=== PATIENT | male | born 1970 | race Hispanic/Latino ===

== ENCOUNTER 2018-04-22 15:11 | Emergency (ER) | payer SELFPAY ==
[2018-04-22] MEDS ORDERED: Ketorolac Tromethamine 30 MG/ML VIAL ONE (15:56)
--- NOTE | 2018-04-22 16:23 | RAD ---
FOUR VIEWS LEFT ELBOW: History: Swelling for one week. FINDINGS: AP, lateral, and both oblique views left elbow obtained. There is extensive soft tissue swelling posterior to the left elbow surrounding the olecranon. This m ay represent a possible area of infection. No osseous lesions or fractures seen. IMPRESSION: Extensive soft tissue swelling. Cellulitis, or abscess in this area in this area cannot be excluded. No evidence of acute fracture or bony lesions seen. POS: [facility]
== END 2018-04-22 16:55 | disposition home or self-care (01) ==
LOC: ERS 15:11
DX: M70.22 Olecranon bursitis, left elbow (principal); F32.9 Major depressive disorder, single episode, unspecified; F17.210 Nicotine dependence, cigarettes, uncomplicated; Z71.6 Tobacco abuse counseling
CPT/HCPCS: 96372; 99406; J1885

== ENCOUNTER 2018-06-25 22:11 | Emergency (ER) | payer SELFPAY ==
--- NOTE | 2018-06-25 22:28 | RAD ---
THREE VIEWS OF THE LEFT SHOULDER: 06/25/18 COMPARISON: None. HISTORY: Trauma to left shoulder with left shoulder pain. FINDINGS: Three views of the left shoulder shows no evidence of acute fracture or dislocation. No degenerative changes are seen. No soft tissue swelling is present. IMPRESSION: No evidence of acute osseous abnormality. POS: [facility]
== END 2018-06-25 23:03 | disposition home or self-care (01) ==
LOC: ERS 22:11
DX: S46.912A Strain of unspecified muscle, fascia and tendon at shoulder and upper arm level, left arm, initial encounter (principal); F32.9 Major depressive disorder, single episode, unspecified; F17.210 Nicotine dependence, cigarettes, uncomplicated; Z79.899 Other long term (current) drug therapy; V89.2XXA Person injured in unspecified motor-vehicle accident, traffic, initial encounter
CPT/HCPCS: G0390

== ENCOUNTER 2021-02-25 04:03 | Emergency (ER) | payer SELFPAY | END 2021-02-25 04:30 | LOC: ERS 04:03 | DX: Z02.89 Encounter for other administrative examinations (principal); I10 Essential (primary) hypertension; F17.210 Nicotine dependence, cigarettes, uncomplicated | CPT/HCPCS: 99283 ==

== ENCOUNTER 2022-06-02 21:29 | Observation (INO) | payer SELFPAY ==
[2022-06-02 22:02] LABS: #Basophils 0.1 thou/uL (0.0-0.2); #Eosinphils 0.1 thou/uL (0.0-0.7); #Lymphocytes 2.5 thou/uL (1.20-3.40); #Monocytes 0.7 thou/uL (0.11-0.59); #Neutrophils 4.4 thou/uL (1.40-6.50); %Basophils 0.9 % (0.0-1.0); %Eosinophils 1.8 % (0.0-10.0); %Lymphocytes 32.7 % (21.0-51.0); %Monocytes 8.4 % (0.0-10.0); %Neutrophils 56.2 % (42.0-75.0); Hemoglobin 12.6 g/dL (14.0-18.0); Mean Corpuscular HGB CONC 34.9 g/dL (32.0-36.0); Mean Corpuscular Hemoglobin 30.6 pg (27.0-31.0); Mean Corpuscular Volume 87.7 fL (78.0-98.0); Mean Platelet Volume 8.8 fL (7.4-10.4); Platelet Count 170 thou/uL (130-400); RBC Distribution Width 12.3 % (11.5-14.5); Red Blood Cell (RBC) Count 4.12 mill/uL (4.70-6.10); White Blood Cell (WBC) Count 7.8 thou/uL (4.8-10.8)
[2022-06-02 22:22] LABS: ALT (SGPT) 12 U/L (8-55); AST (SGOT) 15 U/L (5-34); Albumin 3.6 g/dL (3.5-5.0); Alkaline Phosphatase 100 U/L (40-110); Anion Gap 14 mmol/L (10-20); BUN (Urea Nitrogen) 17 mg/dL (8.9-20.6); Bilirubin, Total 0.5 mg/dL (0.2-1.2); Calc. Creatinine Clearance 0 mL/min (70-130); Calcium 8.7 mg/dL (7.8-10.44); Carbon Dioxide 25 mmol/L (22-29); Chloride 107 mmol/L (98-107); Estimated GFR 59; Globulin 2.7 g/dL (2.4-3.5); Glucose 111 mg/dL (70-105); Potassium 3.7 mmol/L (3.5-5.1); Protein, Total 6.3 g/dL (6.0-8.3); Sodium 142 mmol/L (136-145)
[2022-06-02 22:44] LABS: CKMB 1.7 ng/mL (0-6.6)
[2022-06-02] MEDS ORDERED: Nitrazine Tape 1 ROLL ONE (22:55)
[2022-06-02] MEDS ORDERED: Nitroglycerin 2% Ointment 1 INCH/1 GM Packet ONE (22:55)
[2022-06-02] MEDS ORDERED: Lisinopril 10 MG TAB ONE (22:55)
[2022-06-02] MEDS ORDERED: Aspirin Chewable 81 MG TAB ONE (22:55)
[2022-06-02] MEDS ORDERED: Chlorthalidone 25 MG TAB PO SCH (23:45)
[2022-06-03] MEDS ORDERED: Ondansetron PF 4 MG/2 ML Vial IVP PRN (00:11)
[2022-06-03] MEDS ORDERED: Acetaminophen 325 MG TAB PO PRN (00:11)
[2022-06-03] MEDS ORDERED: Nitroglycerin 0.4 MG TAB (25 Tab Bottle) SL PRN (00:12)
[2022-06-03 01:23] LABS: Troponin I 0.026 ng/mL (< 0.028)
[2022-06-03] MEDS: hydrALAZINE 20 MG/ML VIAL SLOW IVP PRN ×2 (01:23→07:42)
[2022-06-03 05:09] LABS: #Eosinphils 0.2 thou/uL (0.0-0.7); #Lymphocytes 2.5 thou/uL (1.20-3.40); #Monocytes 0.6 thou/uL (0.11-0.59); #Neutrophils 3.6 thou/uL (1.40-6.50); %Basophils 0.6 % (0.0-1.0); %Eosinophils 2.7 % (0.0-10.0); %Lymphocytes 35.3 % (21.0-51.0); %Monocytes 9.3 % (0.0-10.0); %Neutrophils 52.2 % (42.0-75.0); Hemoglobin 12.4 g/dL (14.0-18.0); Mean Corpuscular HGB CONC 33.9 g/dL (32.0-36.0); Mean Corpuscular Hemoglobin 30.1 pg (27.0-31.0); Mean Corpuscular Volume 88.9 fL (78.0-98.0); Mean Platelet Volume 8.9 fL (7.4-10.4); Platelet Count 163 thou/uL (130-400); RBC Distribution Width 12.4 % (11.5-14.5); Red Blood Cell (RBC) Count 4.13 mill/uL (4.70-6.10)
[2022-06-03 05:29] LABS: Anion Gap 13 mmol/L (10-20); BUN (Urea Nitrogen) 17 mg/dL (8.9-20.6); Calc. Creatinine Clearance 86 mL/min (70-130); Calcium 8.7 mg/dL (7.8-10.44); Carbon Dioxide 23 mmol/L (22-29); Chloride 108 mmol/L (98-107); Estimated GFR 65; Glucose 99 mg/dL (70-105); Potassium 3.6 mmol/L (3.5-5.1); Sodium 140 mmol/L (136-145)
[2022-06-03 05:35] LABS: Troponin I 0.018 ng/mL (< 0.028)
[2022-06-03] MEDS ORDERED: Regadenoson 0.4 MG/5 ML SYRINGE ONE (08:47)
[2022-06-03] MEDS ORDERED: NIFEdipine XL 30 MG TAB PO SCH (09:00)
[2022-06-03] MEDS ORDERED: Heparin 5,000 UNITS/ML VIAL SC SCH (09:00)
[2022-06-03] MEDS ORDERED: Chlorthalidone 25 MG TAB PO SCH (09:00)
[2022-06-03 09:01] LABS: Cardiac Risk 4.4 (Less than 4.5)
[2022-06-03 12:40] VITALS: BP 140/87; TEMP 97.8
[2022-06-03] MEDS ORDERED: Lisinopril 20 MG TAB PO SCH (21:00)
== END 2022-06-03 15:05 | disposition home or self-care (01) ==
LOC: ERS 21:29 → 2SW 06-03 00:03
PROVIDERS: ADMIT Family Medicine; ATTEND Family Medicine
DX: I16.0 Hypertensive urgency (principal); R07.89 Other chest pain; R42 Dizziness and giddiness; I10 Essential (primary) hypertension; R00.1 Bradycardia, unspecified; N17.9 Acute kidney failure, unspecified; Z87.891 Personal history of nicotine dependence; Z20.822 Contact with and (suspected) exposure to COVID-19
CPT/HCPCS: 36415; 70450; 71045; 78452; 80048; 80053; 80061; 82553; 83735; 84443; 84484; 85025; 93005; 93017; 96374; 96376; A9500; G0378; J0360; J2785; U0003; U0005

== ENCOUNTER 2022-07-14 21:42 | Emergency (ER) | payer SELFPAY ==
[2022-07-15] MEDS ORDERED: HYDROcodone/Acetaminophen 10/325 mg Tablet ONE (00:16)
== END 2022-07-15 00:36 | disposition home or self-care (01) ==
LOC: ERS 21:42
DX: M17.12 Unilateral primary osteoarthritis, left knee (principal); I10 Essential (primary) hypertension; F17.210 Nicotine dependence, cigarettes, uncomplicated

== ENCOUNTER 2022-10-01 18:27 | Inpatient (IN) | payer SELFPAY ==
[2022-10-01 18:54] LABS: #Basophils 0.1 thou/uL (0.0-0.2); #Eosinphils 0.1 thou/uL (0.0-0.7); #Lymphocytes 2.2 thou/uL (1.20-3.40); #Monocytes 0.5 thou/uL (0.11-0.59); #Neutrophils 4.4 thou/uL (1.40-6.50); %Basophils 0.7 % (0.0-1.0); %Eosinophils 1.5 % (0.0-10.0); %Lymphocytes 30.6 % (21.0-51.0); %Monocytes 6.8 % (0.0-10.0); %Neutrophils 60.4 % (42.0-75.0); Hemoglobin 12.8 g/dL (14.0-18.0); Mean Corpuscular HGB CONC 34.4 g/dL (32.0-36.0); Mean Corpuscular Hemoglobin 30.6 pg (27.0-31.0); Mean Corpuscular Volume 88.9 fl (78.0-98.0); Mean Platelet Volume 8.9 fL (7.4-10.4); Platelet Count 191 10x3/uL (130-400); RBC Distribution Width 12.4 % (11.5-14.5); Red Blood Cell (RBC) Count 4.17 mill/uL (4.70-6.10); White Blood Cell (WBC) Count 7.2 10x3/uL (4.8-10.8)
[2022-10-01] MEDS ORDERED: Nitroglycerin 2% Ointment 1 INCH/1 GM Packet ONE (19:04)
[2022-10-01] MEDS ORDERED: hydrALAZINE 20 MG/ML VIAL ONE (19:05)
[2022-10-01 19:14] LABS: ALT (SGPT) 17 U/L (8-55); AST (SGOT) 16 U/L (5-34); Albumin 3.9 g/dL (3.5-5.0); Alkaline Phosphatase 100 U/L (40-110); Anion Gap 14 mmol/L (10-20); BUN (Urea Nitrogen) 18 mg/dL (8.9-20.6); Bilirubin, Total 0.4 mg/dL (0.2-1.2); Calc. Creatinine Clearance 0 mL/min (70-130); Carbon Dioxide 24 mmol/L (22-29); Chloride 107 mmol/L (98-107); Estimated GFR 58; Glucose 162 mg/dL (70-105); Lipase 27 U/L (8-78); Potassium 3.8 mmol/L (3.5-5.1); Protein, Total 6.9 g/dL (6.0-8.3); Sodium 141 mmol/L (136-145)
[2022-10-01] MEDS ORDERED: hydrALAZINE 20 MG/ML VIAL SLOW IVP PRN (20:28)
[2022-10-01] MEDS ORDERED: NIFEdipine XL 30 MG TAB PO SCH (20:41)
[2022-10-01 21:38] LABS: Troponin I 0.013 ng/mL (< 0.028)
[2022-10-02] MEDS ORDERED: hydrALAZINE 25 MG TAB ONE (00:08)
[2022-10-02] MEDS ORDERED: NIFEdipine XL 30 MG TAB PO SCH (00:15)
[2022-10-02] MEDS: hydrALAZINE 25 MG TAB PO SCH ×3 (00:16→14:08)
[2022-10-02 02:37] LABS: Troponin I 0.063 ng/mL (< 0.028)
[2022-10-02 07:08] LABS: Anion Gap 14 mmol/L (10-20); BUN (Urea Nitrogen) 24 mg/dL (8.9-20.6); Calc. Creatinine Clearance 86 mL/min (70-130); Carbon Dioxide 22 mmol/L (22-29); Chloride 109 mmol/L (98-107); Estimated GFR 62; Glucose 107 mg/dL (70-105); Potassium 3.8 mmol/L (3.5-5.1); Sodium 141 mmol/L (136-145)
[2022-10-02 13:31] VITALS: BMI 32.1
[2022-10-02] MEDS: NIFEdipine XL 30 MG TAB PO SCH (14:08)
[2022-10-02] MEDS ORDERED: Labetalol HCl 100 MG/20 ML VIAL SLOW IVP PRN (16:31)
[2022-10-02] MEDS ORDERED: Lisinopril 20 MG TAB PO SCH ×2 (21:00)
[2022-10-03] MEDS ORDERED: Chlorthalidone 25 MG TAB PO SCH (09:00)
[2022-10-03] MEDS: NIFEdipine XL 30 MG TAB PO SCH (09:51)
[2022-10-03] MEDS ORDERED: Lisinopril 20 MG TAB PO SCH (16:00)
[2022-10-03 16:15] VITALS: BP 174/114; TEMP 97.8
[2022-10-04] MEDS ORDERED: Lisinopril/Hydrochlorothiazide 20 mg/12.5 mg Tablet PO SCH (09:00)
== END 2022-10-03 16:55 | disposition left against medical advice (07) | DRG 305 ==
LOC: ERS 18:27 → ERHOLD 20:56 → 2SW 10-02 13:16 → OBSVTOIN 10-02 17:51
PROVIDERS: ADMIT Internal Medicine; ATTEND Internal Medicine
DX: I16.0 Hypertensive urgency (principal); F32.A Depression, unspecified; N18.30 Chronic kidney disease, stage 3 unspecified; I12.9 Hypertensive chronic kidney disease with stage 1 through stage 4 chronic kidney disease, or unspecified chronic kidney disease; F41.9 Anxiety disorder, unspecified; D63.1 Anemia in chronic kidney disease; E63.9 Nutritional deficiency, unspecified; E66.9 Obesity, unspecified; Z20.822 Contact with and (suspected) exposure to COVID-19; Z79.899 Other long term (current) drug therapy; Z98.890 Other specified postprocedural states; Z91.14 Patient's other noncompliance with medication regimen; Z68.32 Body mass index [BMI] 32.0-32.9, adult
CPT/HCPCS: 36415; 71045; 80048; 80053; 83690; 83880; 84484; 85025; 93005; 96374; J0360; U0003; U0005

== ENCOUNTER 2022-11-24 10:02 | Emergency (ER) | payer SELFPAY ==
[2022-11-24] MEDS ORDERED: Proparacaine 0.5% Opth 15 ML BOT ONE (11:54)
[2022-11-24] MEDS ORDERED: Fluorescein Opthalmic Strip ONE (11:54)
== END 2022-11-24 13:06 | disposition home or self-care (01) ==
LOC: ERS 10:02
DX: T15.01XA Foreign body in cornea, right eye, initial encounter (principal); I10 Essential (primary) hypertension; E78.00 Pure hypercholesterolemia, unspecified; W22.8XXA Striking against or struck by other objects, initial encounter; Z79.899 Other long term (current) drug therapy; Z87.891 Personal history of nicotine dependence
CPT/HCPCS: 65222

== ENCOUNTER 2023-01-12 15:27 | Emergency (ER) | payer SELFPAY ==
[2023-01-12] MEDS ORDERED: Ketorolac Tromethamine 30 MG/ML VIAL ONE (17:06)
[2023-01-12] MEDS ORDERED: HYDROcodone/Acetaminophen 10/325 mg Tablet ONE (17:06)
== END 2023-01-12 17:25 | disposition home or self-care (01) ==
LOC: ERS 15:27
DX: S96.811A Strain of other specified muscles and tendons at ankle and foot level, right foot, initial encounter (principal); I10 Essential (primary) hypertension; E78.00 Pure hypercholesterolemia, unspecified; Y93.67 Activity, basketball; Z79.899 Other long term (current) drug therapy; Z87.891 Personal history of nicotine dependence
CPT/HCPCS: 96372; 99283; J1885

== ENCOUNTER 2023-06-02 08:30 | Emergency (ER) | payer SELFPAY ==
[2023-06-02] MEDS ORDERED: Acetaminophen 325 MG TAB ONE (08:49)
[2023-06-02] MEDS ORDERED: Ibuprofen 200 MG TAB ONE (08:49)
[2023-06-02 09:53] LABS: SARS-CoV-2 NAA Rapid Test Not Detected (NotDetected)
== END 2023-06-02 10:15 | disposition home or self-care (01) ==
LOC: ERS 08:30
DX: B34.9 Viral infection, unspecified (principal); I10 Essential (primary) hypertension; E78.00 Pure hypercholesterolemia, unspecified; Z87.891 Personal history of nicotine dependence; Z20.822 Contact with and (suspected) exposure to COVID-19; Z79.899 Other long term (current) drug therapy
CPT/HCPCS: 99283

== ENCOUNTER 2023-11-12 07:21 | Emergency (ER) | payer OTHER ==
[2023-11-12] MEDS ORDERED: traMADol HCl 50 MG TAB ONE (07:43)
== END 2023-11-12 07:54 | disposition home or self-care (01) ==
LOC: ERS 07:21
DX: S86.912A Strain of unspecified muscle(s) and tendon(s) at lower leg level, left leg, initial encounter (principal); I10 Essential (primary) hypertension; Z87.891 Personal history of nicotine dependence; X50.1XXA Overexertion from prolonged static or awkward postures, initial encounter
CPT/HCPCS: 99282

== ENCOUNTER 2024-04-09 13:44 | Emergency (ER) | payer OTHER | END 2024-04-09 16:14 | disposition home or self-care (01) | LOC: ERS 13:44 | DX: S83.91XA Sprain of unspecified site of right knee, initial encounter (principal); I10 Essential (primary) hypertension; X50.1XXA Overexertion from prolonged static or awkward postures, initial encounter; Y93.89 Activity, other specified; Z87.891 Personal history of nicotine dependence ==

== ENCOUNTER 2024-09-22 10:43 | Emergency (ER) | payer OTHER ==
[2024-09-22] MEDS ORDERED: Ketorolac Tromethamine 30 MG (1 mL) VIAL ONE (11:24)
[2024-09-22] MEDS ORDERED: Dicyclomine 20 MG/2 ML VIAL ONE (11:24)
[2024-09-22 11:38] LABS: #Basophils 0.06 10x3/uL (0.0-0.2); %Basophils 0.8 % (0.0-1.0); %Eosinophils 2.1 % (0.0-10.0); %Lymphocytes 27.7 % (21.0-51.0); %Monocytes 7.9 % (0.0-10.0); %Neutrophils 61.1 % (42.0-75.0); Hematocrit 38.6 % (42.0-52.0); Hemoglobin 13.6 g/dL (14.0-18.0); Mean Corpuscular HGB CONC 35.2 g/dL (32.0-36.0); Mean Corpuscular Hemoglobin 29.6 pg (27.0-31.0); Mean Corpuscular Volume 83.9 fL (78.0-98.0); Mean Platelet Volume 10.6 fL (7.4-10.4); Platelet Count 249 10x3/uL (130-400); RBC Distribution Width 13.7 % (11.5-14.5)
[2024-09-22 11:53] LABS: ALT (SGPT) 50 U/L (8-55); AST (SGOT) 42 U/L (5-34); Albumin 3.8 g/dL (3.5-5.0); Alkaline Phosphatase 99 U/L (40-110); Anion Gap 13 mmol/L (10-20); BUN (Urea Nitrogen) 28 mg/dL (8.4-25.7); Bilirubin, Total 0.3 mg/dL (0.2-1.2); Calc. Creatinine Clearance 0 mL/min (70-130); Calcium 9.2 mg/dL (7.8-10.44); Carbon Dioxide 23 mmol/L (22-29); Chloride 109 mmol/L (98-107); Estimated GFR 68; Globulin 3.8 g/dL (2.4-3.5); Glucose 88 mg/dL (70-105); Lipase 28 U/L (8-78); Protein, Total 7.6 g/dL (6.0-8.3); Sodium 141 mmol/L (136-145)
[2024-09-22 12:27] LABS: Bacteria/HPF None Seen HPF (None Seen); Bilirubin Negative (Negative); Blood, Urine Negative (Negative); CAUTI Indications for Culture Dysuria,urgency,freq; Clarity Clear (Clear); Glucose, Urine (Dipstick) 30 mg/dL (Negative); Ketone, Urine Negative (Negative); Leukocyte Negative Leu/uL (Negative); Nitrite Negative (Negative); Protein, Urine (Dipstick) 30 mg/dL (Neg-Trace); RBC/HPF 0-3 HPF (0-3); Specific Gravity, Urine 1.027 (1.002-1.036); Squamous Epithelial 0-3 HPF (0-3); Urine Culture Reflex No No; Urobilinogen Normal mg/dL (Less than 2); WBC/HPF 0-3 HPF (0-3); pH, Urine 5.5 (5.0-9.0)
[2024-09-22] MEDS ORDERED: Iopamidol-370 76% 500 ML MDV (1 ML CHARGE) ONE (15:01)
[2024-09-22 18:02] LABS: Chlam.trachomatis by PCR,Urine Not Detected (NotDetected); GC N.gonorrhoeae PCR,UrineVOID Not Detected (NotDetected)
== END 2024-09-22 14:10 | disposition home or self-care (01) ==
LOC: ERS 10:43
DX: K57.90 Diverticulosis of intestine, part unspecified, without perforation or abscess without bleeding (principal); K29.70 Gastritis, unspecified, without bleeding; K20.90 Esophagitis, unspecified without bleeding; E27.9 Disorder of adrenal gland, unspecified; I10 Essential (primary) hypertension; Z87.891 Personal history of nicotine dependence
CPT/HCPCS: 74177; 76870; 80053; 81001; 83690; 85025; 85379; 87491; 87591; 93976; 94760; 96372; 96374; J1885; Q9967

== ENCOUNTER 2025-06-27 06:50 | Emergency (ER) | payer OTHER, SELFPAY ==
[2025-06-27] MEDS ORDERED: Ketorolac Tromethamine 30 MG (1 mL) VIAL ONE (07:16)
[2025-06-27] MEDS ORDERED: Dicyclomine 20 MG TAB ONE (07:16)
[2025-06-27 07:27] LABS: #Basophils 0.05 10x3/uL (0.0-0.2); #Eosinophils 0.33 10x3/uL (0.0-0.7); #Monocytes 0.57 10x3/uL (0.11-0.59); #Neutrophils 4.96 10x3/uL (1.40-6.50); %Basophils 0.6 % (0.0-1.0); %Eosinophils 4.3 % (0.0-10.0); %Lymphocytes 23.0 % (21.0-51.0); %Monocytes 7.4 % (0.0-10.0); %Neutrophils 64.4 % (42.0-75.0); Hematocrit 39.0 % (42.0-52.0); Hemoglobin 13.0 g/dL (14.0-18.0); Mean Corpuscular Hemoglobin 27.4 pg (27.0-31.0); Mean Corpuscular Volume 82.1 fL (78.0-98.0); Platelet Count 227 10x3/uL (130-400); Red Blood Cell (RBC) Count 4.75 mill/uL (4.70-6.10); White Blood Cell (WBC) Count 7.70 10x3/uL (4.8-10.8)
[2025-06-27 07:40] LABS: ALT (SGPT) 34 U/L (Less than 45); AST (SGOT) 32 U/L (11-34); Albumin 3.7 g/dL (3.1-4.5); Alkaline Phosphatase 114 U/L (40-110); Anion Gap 15 mmol/L (10-20); BUN (Urea Nitrogen) 21 mg/dL (8.4-25.7); Bilirubin, Total 0.3 mg/dL (0.3-1.2); Calc. Creatinine Clearance 0 mL/min (70-130); Calcium 9.3 mg/dL (7.8-10.44); Carbon Dioxide 25 mmol/L (22-29); Chloride 107 mmol/L (98-107); Globulin 3.3 g/dL (2.4-3.5); Glucose 152 mg/dL (70-105); Lipase 37 U/L (8-78); Potassium 3.9 mmol/L (3.5-5.1); Sodium 143 mmol/L (136-145)
[2025-06-27 07:44] LABS: Bacteria/HPF None Seen HPF (None Seen); CAUTI Indications for Culture Pelvic or flank pain; Glucose, Urine (Dipstick) Normal (Negative); Leukocyte Negative Leu/uL (Negative); Protein, Urine (Dipstick) 20 mg/dL (Neg-Trace); RBC/HPF 0-3 HPF (0-3); Specific Gravity, Urine 1.021 (1.002-1.036); WBC/HPF 0-3 HPF (0-3)
[2025-06-27 07:47] LABS: Urine Culture Reflex No No
[2025-06-27] MEDS ORDERED: Iopamidol-370 76% 500 ML MDV (1 ML CHARGE) ONE (12:32)
== END 2025-06-27 09:46 | disposition home or self-care (01) ==
LOC: ERS 06:50
DX: R10.84 Generalized abdominal pain (principal); E27.8 Other specified disorders of adrenal gland; I12.9 Hypertensive chronic kidney disease with stage 1 through stage 4 chronic kidney disease, or unspecified chronic kidney disease; N18.9 Chronic kidney disease, unspecified; E78.5 Hyperlipidemia, unspecified; Z87.891 Personal history of nicotine dependence
CPT/HCPCS: 74177; 80053; 81001; 83690; 85025; 96374; J1885